=== PATIENT | male | born 1990 | race Caucasian/White ===

== ENCOUNTER 2021-06-18 03:46 | Inpatient (IN) | payer OTHER ==
[2021-06-18 04:06] LABS: Hemoglobin 14.7 g/dL (14.0-18.0); Mean Corpuscular HGB CONC 35.2 g/dL (32.0-36.0); Mean Corpuscular Hemoglobin 30.5 pg (27.0-31.0); Mean Corpuscular Volume 86.8 fL (78.0-98.0); RBC Distribution Width 12.1 % (11.5-14.5); Red Blood Cell (RBC) Count 4.81 mill/uL (4.70-6.10); White Blood Cell (WBC) Count 11.5 thou/uL (4.8-10.8)
[2021-06-18 04:20] LABS: ALT (SGPT) 28 U/L (8-55); AST (SGOT) 23 U/L (5-34); Albumin 4.2 g/dL (3.5-5.0); Alkaline Phosphatase 60 U/L (40-110); Anion Gap 16 mmol/L (10-20); BUN (Urea Nitrogen) 7 mg/dL (8.9-20.6); Bilirubin, Total 0.2 mg/dL (0.2-1.2); Calc. Creatinine Clearance 0 mL/min (70-130); Calcium 9.4 mg/dL (7.8-10.44); Carbon Dioxide 22 mmol/L (22-29); Chloride 104 mmol/L (98-107); Globulin 3.6 g/dL (2.4-3.5); Glucose 107 mg/dL (70-105); Potassium 3.4 mmol/L (3.5-5.1); Protein, Total 7.8 g/dL (6.0-8.3); Sodium 139 mmol/L (136-145)
[2021-06-18 04:25] LABS: #Eosinphils 0.1 thou/uL (0.0-0.7); #Monocytes 1.2 thou/uL (0.11-0.59); #Neutrophils 6.2 thou/uL (1.40-6.50); %Basophils 0.4 % (0.0-1.0); %Eosinophils 0.5 % (0.0-10.0); %Lymphocytes 34.8 % (21.0-51.0); %Monocytes 10.5 % (0.0-10.0); %Neutrophils 53.9 % (42.0-75.0); Large Platelets SLIGHT; MDiff Complete? YES; Mean Platelet Volume 12.9 fL (7.4-10.4); Platelet Count 117 thou/uL (130-400); Platelet Morphology Comment Appears Adequate
[2021-06-18] MEDS ORDERED: Clindamycin/D5W 600 mg/50 ml Premix Bag ONE (05:18)
[2021-06-18] MEDS ORDERED: Lidocaine 1% w/Epinephrine 1:100K 20 ML VIAL ONE (05:21)
[2021-06-18 06:03] LABS: Prothrombin Time 13.3 sec (12.0-14.7)
[2021-06-18] MEDS ORDERED: hydrALAZINE 20 MG/ML VIAL SLOW IVP PRN (06:27)
[2021-06-18] MEDS ORDERED: Dextrose 5% in Water 1,000 ML IV PRN (06:27)
[2021-06-18] MEDS ORDERED: Dextrose 50% Abboject 50 ML SYRINGE SLOW IVP PRN (06:27)
[2021-06-18] MEDS ORDERED: Morphine 4 MG/ML VIAL SLOW IVP PRN ×2 (06:27)
[2021-06-18] MEDS ORDERED: Ondansetron PF 4 MG/2 ML Vial IVP PRN (06:27)
[2021-06-18] MEDS ORDERED: Potassium Chloride 40 MEQ in Sodium Chloride 0.9% 250 ML 250 ML IVPB SCH (07:00)
[2021-06-18 07:53] VITALS: BMI 37.8
[2021-06-18] MEDS: Sodium Chloride 0.9% 1,000 ML IV SCH ×2 (08:01→15:35)
[2021-06-18 08:16] LABS: SARS-CoV-2 NAA Rapid Test Not Detected (NotDetected)
[2021-06-18 08:39] LABS: Lactic Acid 1.8 mmol/L (0.5-2.2)
[2021-06-18] MEDS: Famotidine/PF 20 mg/2ml Vial SLOW IVP SCH ×2 (08:44→20:07)
[2021-06-18] MEDS: Polyethylene Glycol 3350 17 GM Packet PO SCH (08:45)
[2021-06-18] MEDS: Silver Sulfadiazine 50 GM TUBE TOP SCH ×2 (08:45→22:16)
[2021-06-18] MEDS: Senokot S 8.6-50 MG TAB PO SCH ×2 (08:45→20:06)
[2021-06-18 09:51] LABS: Hemoglobin 13.1 g/dL (14.0-18.0); Mean Corpuscular HGB CONC 34.8 g/dL (32.0-36.0); Mean Corpuscular Hemoglobin 30.4 pg (27.0-31.0); Mean Corpuscular Volume 87.4 fL (78.0-98.0); Mean Platelet Volume 12.3 fL (7.4-10.4); Platelet Count 97 thou/uL (130-400); Red Blood Cell (RBC) Count 4.29 mill/uL (4.70-6.10); White Blood Cell (WBC) Count 10.6 thou/uL (4.8-10.8)
[2021-06-18] MEDS: Clindamycin 150 MG CAP PO SCH ×3 (11:14→20:06)
[2021-06-18] MEDS ORDERED: Acetaminophen 500 MG TAB PO SCH (12:00)
[2021-06-18] MEDS ORDERED: Iopamidol-370 76% 500 ML 1 ML ONE (13:02)
[2021-06-18] MEDS: Acetaminophen/Codeine 30-300mg Tablet PO SCH ×2 (16:15→22:10)
[2021-06-18] MEDS: Acetaminophen 325 MG TAB PO SCH ×2 (16:16→22:10)
[2021-06-18] MEDS: Cyclobenzaprine 10 MG TAB PO PRN (20:05)
[2021-06-18] MEDS ORDERED: Dextromethorphan Polistirex 30 MG/5 ML (89 ML BOTTLE) PO PRN (20:24)
[2021-06-19] MEDS: Acetaminophen/Codeine 30-300mg Tablet PO SCH ×2 (04:00→11:05)
[2021-06-19] MEDS: Acetaminophen 325 MG TAB PO SCH ×3 (04:00→11:04)
[2021-06-19] MEDS: Clindamycin 150 MG CAP PO SCH ×2 (04:00→08:41)
[2021-06-19] MEDS ORDERED: F PO SCH (05:00)
[2021-06-19] MEDS ORDERED: Acetaminophen/Codeine 30-300mg Tablet PO PRN (05:14)
[2021-06-19] MEDS: Cyclobenzaprine 10 MG TAB PO PRN (05:25)
[2021-06-19 06:01] LABS: Anion Gap 14 mmol/L (10-20); BUN (Urea Nitrogen) 7 mg/dL (8.9-20.6); Calc. Creatinine Clearance 255 mL/min (70-130); Calcium 9.3 mg/dL (7.8-10.44); Carbon Dioxide 23 mmol/L (22-29); Chloride 105 mmol/L (98-107); Glucose 117 mg/dL (70-105); Phosphorus 2.9 mg/dL (2.3-4.7); Potassium 3.9 mmol/L (3.5-5.1); Sodium 138 mmol/L (136-145)
[2021-06-19 08:20] VITALS: TEMP 98.2
[2021-06-19 08:27] LABS: #Eosinphils 0.1 thou/uL (0.0-0.7); #Lymphocytes 1.4 thou/uL (1.20-3.40); #Neutrophils 5.2 thou/uL (1.40-6.50); %Basophils 0.3 % (0.0-1.0); %Eosinophils 0.8 % (0.0-10.0); %Lymphocytes 18.2 % (21.0-51.0); %Monocytes 12.6 % (0.0-10.0); %Neutrophils 68.1 % (42.0-75.0); Hemoglobin 12.9 g/dL (14.0-18.0); Mean Corpuscular HGB CONC 32.6 g/dL (32.0-36.0); Mean Corpuscular Hemoglobin 28.8 pg (27.0-31.0); Mean Corpuscular Volume 88.2 fL (78.0-98.0); Mean Platelet Volume 12.6 fL (7.4-10.4); Platelet Count 107 thou/uL (130-400); Red Blood Cell (RBC) Count 4.48 mill/uL (4.70-6.10); White Blood Cell (WBC) Count 7.6 thou/uL (4.8-10.8)
[2021-06-19] MEDS: Famotidine/PF 20 mg/2ml Vial SLOW IVP SCH (08:41)
[2021-06-19] MEDS: Polyethylene Glycol 3350 17 GM Packet PO SCH (08:41)
[2021-06-19] MEDS: Senokot S 8.6-50 MG TAB PO SCH (08:41)
[2021-06-19] MEDS: Silver Sulfadiazine 50 GM TUBE TOP SCH (08:41)
[2021-06-19 11:01] VITALS: BP 125/81
[2021-06-19] MEDS ORDERED: Bacitracin 1 PK TOP SCH (15:00)
== END 2021-06-19 13:10 | disposition home or self-care (01) | DRG 964 ==
LOC: ERS 03:46 → CCU 06:31 → SURG A 11:43
PROVIDERS: ADMIT Surgery; ATTEND Surgery
PROC: 0HQ0XZZ Repair Scalp Skin, External Approach (ICD-10-PCS; principal; 2021-06-18)
DX: S06.4X0A Epidural hemorrhage without loss of consciousness, initial encounter (principal); S37.012A Minor contusion of left kidney, initial encounter; M87.852 Other osteonecrosis, left femur; M87.851 Other osteonecrosis, right femur; V29.40XA Motorcycle driver injured in collision with unspecified motor vehicles in traffic accident, initial encounter; G93.89 Other specified disorders of brain; S00.81XA Abrasion of other part of head, initial encounter; Z20.822 Contact with and (suspected) exposure to COVID-19; E78.00 Pure hypercholesterolemia, unspecified; F17.290 Nicotine dependence, other tobacco product, uncomplicated; Z88.0 Allergy status to penicillin; R40.2362 Coma scale, best motor response, obeys commands, at arrival to emergency department; R40.2142 Coma scale, eyes open, spontaneous, at arrival to emergency department; R40.2252 Coma scale, best verbal response, oriented, at arrival to emergency department; I10 Essential (primary) hypertension; E78.5 Hyperlipidemia, unspecified; S01.01XA Laceration without foreign body of scalp, initial encounter
CPT/HCPCS: 12002; 36415; 70450; 70486; 71260; 72125; 74177; 80048; 80053; 80307; 83605; 83690; 83735; 84100; 85025; 85610; 85730; 90471; 96365; G0390; J3480; J3490; J7050; Q9967; S0028; U0002

== ENCOUNTER 2023-01-12 23:01 | Emergency (ER) | payer OTHER ==
[2023-01-12 23:43] LABS: #Eosinphils 0.1 thou/uL (0.0-0.7); #Monocytes 0.6 thou/uL (0.11-0.59); #Neutrophils 3.1 thou/uL (1.40-6.50); %Basophils 0.5 % (0.0-1.0); %Eosinophils 1.3 % (0.0-10.0); %Lymphocytes 38.4 % (21.0-51.0); %Monocytes 9.2 % (0.0-10.0); %Neutrophils 50.4 % (42.0-75.0); Hemoglobin 13.5 g/dL (14.0-18.0); Mean Corpuscular HGB CONC 34.5 g/dL (32.0-36.0); Mean Corpuscular Hemoglobin 28.8 pg (27.0-31.0); Mean Corpuscular Volume 83.4 fl (78.0-98.0); RBC Distribution Width 12.7 % (11.5-14.5); Red Blood Cell (RBC) Count 4.69 mill/uL (4.70-6.10); White Blood Cell (WBC) Count 6.1 10x3/uL (4.8-10.8)
[2023-01-13 00:15] LABS: Platelet Count 82 10x3/uL (130-400)
[2023-01-13 00:16] LABS: ALT (SGPT) 13 U/L (8-55); AST (SGOT) 12 U/L (5-34); Albumin 4.4 g/dL (3.5-5.0); Alkaline Phosphatase 46 U/L (40-110); Anion Gap 13 mmol/L (10-20); BUN (Urea Nitrogen) 11 mg/dL (8.9-20.6); Bilirubin, Total 0.5 mg/dL (0.2-1.2); Calc. Creatinine Clearance 0 mL/min (70-130); Calcium 9.4 mg/dL (7.8-10.44); Carbon Dioxide 24 mmol/L (22-29); Chloride 103 mmol/L (98-107); Estimated GFR 118; Globulin 2.6 g/dL (2.4-3.5); Glucose 89 mg/dL (70-105); Lipase 12 U/L (8-78); Potassium 3.6 mmol/L (3.5-5.1); Sodium 136 mmol/L (136-145)
[2023-01-13 00:48] LABS: CellaVision Operator ID LAB.JMM; Platelet Adequacy Comment Platelets Decreased; RBC Morphology Within Normal Limits
== END 2023-01-13 01:59 ==
LOC: ERS 23:01
DX: K59.00 Constipation, unspecified (principal); K64.9 Unspecified hemorrhoids; E78.00 Pure hypercholesterolemia, unspecified; F17.210 Nicotine dependence, cigarettes, uncomplicated
CPT/HCPCS: 36416; 74176; 80053; 83690; 85025